=== PATIENT | male | born 1995 | race Caucasian/White ===

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

== ENCOUNTER 2017-02-03 03:50 | Emergency (ER) | payer OTHER ==
[~2017-02-03] VITALS: Ht 170.2 cm; Wt 53.1 kg
[~2017-02-03 03:50] MED LIST changes: +IBUPROFEN 600600 M1 PO
== END 2017-02-03 04:59 | disposition home or self-care (01) ==
LOC: ER 03:50
DX: J02.9 Acute pharyngitis, unspecified (principal); I10 Essential (primary) hypertension; J45.909 Unspecified asthma, uncomplicated; Z91.048 Other nonmedicinal substance allergy status